=== PATIENT | female | born 2000 | race Caucasian/White ===

== ENCOUNTER 2023-04-26 10:48 | Outpatient (REF) | payer MEDICAID, SELFPAY ==
[2023-04-26 15:29] LABS: HCT 42.4 % (36.0-46.0); HGB 13.8 g/dL (11.2-15.7); MCH 29.2 pg (27.0-33.0); MCHC 32.5 % (32.0-36.0); MCV 90 fL (80-95); MPV 10.7 fL (8.0-11.0); Platelet Count 312 10^3/uL (130-400); RBC 4.73 10^6/uL (3.93-5.22); RDW 12.7 % (11.7-14.6); RDW-SD 41.8 fL
[2023-04-26 16:34] LABS: TSH 0.44 uIU/mL (0.36-3.74)
== END 2023-04-26 10:49 | disposition home or self-care (01) ==
LOC: NCHCN 10:48
PROVIDERS: Visit Provider Nurse Practitioner Family
DX: F32.A Depression, unspecified (principal)
CPT/HCPCS: 82306; 85027; 84443

== ENCOUNTER 2023-08-19 15:35 | Emergency (ER) | payer MEDICAID, SELFPAY ==
[2023-08-19 15:38] VITALS: BP 127/78; PULSE 83; RESP 18; TEMP 36.7; O2SAT 98
[2023-08-19] MEDS: Tetracaine 0.5% 4 ML BTL (15:52)
[2023-08-19] MEDS: Fluorescein STRIPS 100/BOX 1 MG (15:52)
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
== END 2023-08-19 16:05 | disposition home or self-care (01) ==
LOC: ER 16:11
PROVIDERS: Emergency Provider Physician Assistant
DX: H10.9 Unspecified conjunctivitis (principal); F17.290 Nicotine dependence, other tobacco product, uncomplicated
CPT/HCPCS: 99283

== ENCOUNTER 2023-10-31 08:25 | Emergency (ER) | payer MEDICAID, SELFPAY ==
[2023-10-31 08:28] VITALS: BP 122/79; PULSE 82; RESP 14; TEMP 36.8; O2SAT 97
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
[2023-10-31] MEDS: Ketorolac 15 MG/ML VIAL IM (09:06)
[2023-10-31] MEDS: Acetaminophen 500 MG TAB 1000 MG PO (09:06)
[2023-10-31] MEDS: Cyclobenzaprine 10 MG TAB PO (09:06)
== END 2023-10-31 09:57 | disposition home or self-care (01) ==
PROVIDERS: Emergency Provider Emergency Medicine
DX: S33.5XXA Sprain of ligaments of lumbar spine, initial encounter (principal); X50.0XXA Overexertion from strenuous movement or load, initial encounter; Y99.0 Civilian activity done for income or pay
CPT/HCPCS: 81025; 96372; 99284; 99283; J1885

== ENCOUNTER 2023-11-03 19:03 | Outpatient (CLI) | payer MEDICAID, SELFPAY ==
--- NOTE | 2023-11-03 | DI.RAD_ITS ---
Exam(s) XR LUMBAR SPINE AP, LAT EXAM: XR LUMBAR SPINE AP, LAT CLINICAL HISTORY: LOW BACK PAIN ICD-10M54.50. TECHNIQUE: 2D digital imaging was performed of the lumbar spine. Three images were obtained. AP, l ateral, and L5-S1 spot views were obtained. COMPARISON: No exams were available for comparison FINDINGS: BONES: No fracture or destructive lesion. Vertebral bodies are unremarkable. No facet hypertrophy jarad ntified. DISKS: Intervertebral disc spaces are maintained. ALIGNMENT: Lumbar spinal alignment is within normal limits. No spondylolysis or spondylolisthesis. SOFT TISSUE: Normal. IMPRESSION: Unremarkable radiographs of the lumbar spine. DATA REPOSITORY: RADIATION DOSE DELIVERED:
--- NOTE | 2023-11-03 20:34 | DI.VRAD_ITS ---
PROCEDURE INFORMATION: Exam: XR Lumbosacral Spine Exam date and time: 11/03/2023 19:37 Age: 23 years old Clinical indication: Low back pain TECHNIQUE: Imaging protocol: Radiologic exam of the lumbosacral spine. Views: 2 or 3 views. COMPARISON: No relevant prior studies available. FINDINGS: Bones/joints: No acute fracture or subluxation. No significant degenerative changes are seen. Soft tissues: Unremarkable. IMPRESSION: No acute bony pathology. Dictated and Authenticated by: Perlita Nugent MD. Ordering:DARREL Downing MD
== END 2023-11-03 19:23 ==
PROVIDERS: Visit Provider Physician Assistant Medical
DX: M54.50 Low back pain, unspecified (principal)
CPT/HCPCS: 72100

== ENCOUNTER 2024-09-15 21:02 | Emergency (ER) | payer SELFPAY ==
[2024-09-15 21:36] VITALS: BP 137/92; PULSE 105; RESP 19; TEMP 37.2; O2SAT 99
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
[2024-09-15] MEDS: Diph,Pertuss(Acell),Tet Vac/Pf 0.5 ML SYR IM (21:54)
[2024-09-15] MEDS: Amoxicillin 875/Clav. 125 TAB PO (21:54)
--- NOTE | 2024-09-16 16:23 | NUR.NOTE ---
Nursing Note: Patient questioning which pharmacy her prescriptions was sent to
== END 2024-09-15 22:08 | disposition home or self-care (01) ==
PROVIDERS: Emergency Provider Physician Assistant
DX: S50.372A Other superficial bite of left elbow, initial encounter (principal); Z23 Encounter for immunization; W54.0XXA Bitten by dog, initial encounter; Y93.89 Activity, other specified; Y92.018 Other place in single-family (private) house as the place of occurrence of the external cause; F17.290 Nicotine dependence, other tobacco product, uncomplicated
CPT/HCPCS: 90471; 90715; 99283